=== PATIENT | male | born 1950 | race Caucasian/White ===

== ENCOUNTER 2025-06-25 14:39 | Outpatient (CLI) | payer MEDICARE, OTHER ==
--- NOTE | 2025-06-25 16:29 | RADIOLOGY REPORT ---
DI CHEST,TWO VIEWS, HISTORY: R/O PLURAL EFFUSION S/P PNEUMONIA COMPARISON: None None TECHNICAL DATA: 2 view of the chest was obtained. FINDINGS: Lines and tubes: None Cardiomediastinal silhouette: normal Pulmonary vasculature: normal Lung expansion: normal Lung airspace: Probable right mid lung zone pulmonary nodule. Lung interstitium: normal Pleura: normal Pneumothorax: no Bones: Unremarkable Other: no IMPRESSION: Probable right mid lung zone pulmonary nodule.
== END 2025-06-25 23:59 | disposition home or self-care (01) ==
LOC: RAD 14:39
PROVIDERS: ATTEND Physician Assistant
DX: R91.8 Other nonspecific abnormal finding of lung field (principal)
CPT/HCPCS: 71046